=== PATIENT | female | born 1980 | race Caucasian/White ===

== ENCOUNTER → 2024-04-03 08:49 | Outpatient (REF) | payer OTHER, SELFPAY | LOC: HWWDC 08:49 | PROVIDERS: ATTENDING PHYSICIAN Obstetrics & Gynecology; FAMILY PHYSICIAN Nurse Practitioner Adult Health | DX: Z12.31 Encounter for screening mammogram for malignant neoplasm of breast (principal); N92.0 Excessive and frequent menstruation with regular cycle; R93.89 Abnormal findings on diagnostic imaging of other specified body structures | CPT/HCPCS: 76830; 76856; 77063; 77067 ==

== ENCOUNTER → 2024-04-09 08:29 | Outpatient (REF) | payer OTHER, SELFPAY | LOC: WDC 08:29 | PROVIDERS: ATTENDING PHYSICIAN Nurse Practitioner Adult Health | DX: R92.8 Other abnormal and inconclusive findings on diagnostic imaging of breast (principal) | CPT/HCPCS: 76642 ==

== ENCOUNTER → 2024-04-29 12:45 | Outpatient (REF) | payer OTHER, SELFPAY | LOC: HWRAD 12:45 | PROVIDERS: ATTENDING PHYSICIAN Obstetrics & Gynecology Gynecologic Oncology; FAMILY PHYSICIAN Nurse Practitioner Adult Health; REFERRING PHYSICIAN Obstetrics & Gynecology | DX: E66.01 Morbid (severe) obesity due to excess calories (principal) | CPT/HCPCS: 71260; 74177; Q9967 ==

== ENCOUNTER → 2025-02-18 10:22 | Outpatient (REF) | payer OTHER, SELFPAY | LOC: HWRAD 10:22 | PROVIDERS: ATTENDING PHYSICIAN Obstetrics & Gynecology Gynecology; FAMILY PHYSICIAN Nurse Practitioner Adult Health | DX: D27.1 Benign neoplasm of left ovary (principal); Z90.721 Acquired absence of ovaries, unilateral | CPT/HCPCS: 76830; 76856 ==

== ENCOUNTER → 2025-04-07 14:03 | Outpatient (REF) | payer OTHER, SELFPAY | LOC: WDC 14:03 | PROVIDERS: ATTENDING PHYSICIAN Obstetrics & Gynecology Gynecology | DX: Z12.31 Encounter for screening mammogram for malignant neoplasm of breast (principal); R92.8 Other abnormal and inconclusive findings on diagnostic imaging of breast | CPT/HCPCS: 76642; 77063; 77067 ==